=== PATIENT | female | born 1990 | race Caucasian/White ===

== ENCOUNTER 2022-04-19 23:33 | Emergency (ER) | payer MEDICAID ==
[~2022-04-19] VITALS: Ht 170.2 cm; Wt 60.0 kg
[2022-04-19] MEDS ORDERED: SODIUM CHLORIDE 0.9% 1,000 ML IV ONE (23:45)
[2022-04-20 00:12] LABS: BASOPHILS % 0.6 % (0.0-2.0); EOSINOPHILS % 1.5 % (0.0-5.0); HEMATOCRIT. 38.8 % (36.0-48.0); HEMOGLOBIN. 12.5 g/dL (12.0-16.0); LYMPHOCYTES % 23.5 % (20.0-50.0); MEAN CORPUSCULAR HEMOGLOBIN 27.2 pg (28.0-32.0); MEAN CORPUSCULAR VOLUME 84.3 fL (81.0-99.0); MEAN PLATELET VOLUME 8.3 fl (7.4-10.4); MONOCYTES % 8.8 % (2.0-8.0); NEUTROPHILS % 65.6 % (40.0-76.0); PLATELET 298 x1000/uL (130-400); RED CELL DISTRIBUTION WIDTH 14.1 % (11.6-14.6)
[2022-04-20 00:20] LABS: CHLORIDE 106 mEq/L (98-107)
[2022-04-20 00:36] LABS: ETHANOL BLOOD < 10 mg/dL
[2022-04-20 00:40] LABS: HCG SCREEN NEGATIVE
[2022-04-20 02:00] VITALS: BP 111/76
[2022-04-20 04:32] LABS: *AMPHETAMINES SCREEN URINE NEGATIVE (NEGATIVE); *BARBITURATES SCREEN URINE NEGATIVE (NEGATIVE); *BENZODIAZEPINES SCREEN URINE NEGATIVE (NEGATIVE); *COCAINE SCREEN URINE NEGATIVE (NEGATIVE); CANNABINOID URINE SCREEN NEGATIVE (NEGATIVE); METHADONE URINE SCREEN NEGATIVE (NEGATIVE); OPIATES URINE SCREEN NEGATIVE (NEGATIVE); PHENCYCLIDINE URINE SCREEN NEGATIVE (NEGATIVE)
== END 2022-04-20 02:39 | disposition home or self-care (01) ==
LOC: ER 23:36
DX: I47.1 Supraventricular tachycardia (principal)
CPT/HCPCS: 36415; 71045; 80053; 80305; 80320; 84443; 84484; 84703; 85025; 99284; J7030; G0480

== ENCOUNTER 2023-08-09 19:34 | Emergency (ER) | payer MEDICAID, OTHER ==
[~2023-08-09] VITALS: Ht 154.9 cm; Wt 54.9 kg
[2023-08-09 19:56] VITALS: BP 127/84; PULSE 100; RESP 16; TEMP 98.4; O2SAT 100
[2023-08-09 22:36] LABS: CLARITY URINE CLOUDY (CLEAR); COLOR URINE RED (YELLOW); GLUCOSE URINE NEGATIVE (NEGATIVE); KETONES URINE NEGATIVE (NEGATIVE); LEUKOCYTE ESTERASE URINE 3+ (NEGATIVE); NITRITE URINE NEGATIVE (NEGATIVE); OCCULT BLOOD URINE 3+ (NEGATIVE); PROTEIN URINE 1+ (NEGATIVE); SPECIFIC GRAVITY URINE 1.014 (1.005-1.030); UROBILINOGEN URINE 0.2 E.U./dL (0.2-1.0)
[2023-08-09 22:50] LABS: BACTERIA URINE 1+; RBC URINE TNTC /hpf (0-2); SQUAMOUS EPITHELIAL CELL URINE 1+ /lpf (RARE/1+)
[2023-08-09 22:51] LABS: WBC URINE TNTC /hpf (0-2)
[2023-08-09] MEDS ORDERED: CEPH500T MT (23:04)
[2023-08-09] MEDS: CEFTRIAXONE SODIUM 1G VIAL IM ONE (23:23)
[2023-08-09] MEDS: ACETAMINOPHEN 325MG TABLET PO ONE (23:23)
== END 2023-08-09 23:45 | disposition home or self-care (01) ==
LOC: ER 19:34
DX: N12 Tubulo-interstitial nephritis, not specified as acute or chronic (principal)
CPT/HCPCS: 99283; 81003; 81025; 87086; 87186; 87077; 96372; J0696

== ENCOUNTER 2023-10-23 11:55 | Emergency (ER) | payer MEDICAID ==
[~2023-10-23] VITALS: Ht 157.5 cm; Wt 60.0 kg
[~2023-10-23 11:55] MED LIST: CEPH500T MT
[2023-10-23 12:01] VITALS: O2SAT 100
[2023-10-23 12:37] LABS: CLARITY URINE CLEAR (CLEAR); COLOR URINE YELLOW (YELLOW); GLUCOSE URINE NEGATIVE (NEGATIVE); KETONES URINE NEGATIVE (NEGATIVE); LEUKOCYTE ESTERASE URINE 3+ (NEGATIVE); NITRITE URINE NEGATIVE (NEGATIVE); OCCULT BLOOD URINE 3+ (NEGATIVE); PROTEIN URINE NEGATIVE (NEGATIVE); SPECIFIC GRAVITY URINE 1.012 (1.005-1.030); UROBILINOGEN URINE 0.2 E.U./dL (0.2-1.0)
[2023-10-23 13:25] LABS: BACTERIA URINE 1+; SQUAMOUS EPITHELIAL CELL URINE FEW /lpf (RARE/1+)
[2023-10-23 13:26] LABS: WBC URINE 50-100 /hpf (0-2)
[2023-10-23] MEDS ORDERED: NITR100C MT (13:41)
[2023-10-23] MEDS ORDERED: PHEN-910 MT (13:41)
[2023-10-23 13:58] VITALS: BP 93/64; PULSE 83; RESP 18; TEMP 36.94740; O2SAT 100
== END 2023-10-23 14:04 | disposition home or self-care (01) ==
LOC: ER 11:55
DX: N39.0 Urinary tract infection, site not specified (principal); R30.0 Dysuria; Z98.51 Tubal ligation status
CPT/HCPCS: 81003; 81025; 87077; 87186; 99283

== ENCOUNTER 2024-04-05 11:28 | Emergency (ER) | payer MEDICAID ==
[~2024-04-05] VITALS: Ht 162.6 cm; Wt 55.0 kg
[~2024-04-05 11:28] MED LIST changes: +NITR100C MT; +PHEN-910 MT
[2024-04-05 12:02] VITALS: O2SAT 100
[2024-04-05 12:11] VITALS: BP 102/68; PULSE 88; RESP 16; TEMP 36.6; O2SAT 100
[2024-04-05 13:40] VITALS: TEMP 97.8
[2024-04-05] MEDS: ACETAMINOPHEN 325MG TABLET PO ONE (13:40)
[2024-04-05] MEDS ORDERED: TOPUD PO (13:46)
== END 2024-04-05 14:27 | disposition home or self-care (01) ==
LOC: ER 11:28
DX: B34.9 Viral infection, unspecified (principal); Z90.710 Acquired absence of both cervix and uterus; Z20.822 Contact with and (suspected) exposure to COVID-19
CPT/HCPCS: 87426; 87804; 99283